=== PATIENT | female | born 1950 | race Caucasian/White ===

== ENCOUNTER 2018-05-28 11:25 | Day surgery (SDC) | payer OTHER ==
[2018-05-28 11:57] VITALS: BMI 26.2
[2018-05-28 12:52] VITALS: TEMP 98
[2018-05-28 13:10] VITALS: PULSE 62
[2018-05-28 15:04] VITALS: BP 123/64
--- NOTE | 2018-05-29 16:45 | PATH ---
Surgical Pathology Report Patient Name: VETO ANDRE [facility]. Rec. #: [id number] /Age/Gender: 1950 (Age: 67) / F Account: [id number] Location: ASU-ENDOSCOPY Taken: 05/28/2018 Received: 05/28/2018 Reported: 05/29/2018 Physicians: Cuate Scales D.O. Specimen(s) Received A: BX CECUM B: BX CECAL POLYP C: BX HEPATIC FLEXURE D: BX PROXIMAL TRANSVERSE COLON E: POLYP SIGMOID F: RECTAL SIGMOID POLYP Clinical History History of colon polyps Postoperative diagnosis: Hemorrhoids, diverticulosis, colon polyps Final Diagnosis A. CECUM, BIOPSY: COLONIC MUCOSA WITH LYMPHOID AGGREGATES IN THE LAMINA PROPRIA. B. CECAL POLYP, POLYPECTOMY: TUBULAR ADENOMA. C. HEPATIC FLEXURE POLYP, POLYPECTOMY: TUBULAR ADENOMA. D. PROXIMAL TRANSVERSE COLON POLYP, POLYPECTOMY: TUBULAR ADENOMA. E. SIGMOID POLYP, POLYPECTOMY: TUBULAR ADENOMA. F. RECTAL SIGMOID POLYP POLYPECTOMY: TUBULAR ADENOMA. Electronically Signed Ana Maria Dill M.D. Gross Description A. Received in formalin, labeled "biopsy cecum" are 3 guzman, irregular portions of soft tissue ranging from 0.3-0.4 cm. in greatest dimension. The specimens are submitted in toto in one cassette. B. Received in formalin, labeled "biopsy cecal polyp" is a guzman, irregular portion of soft tissue measuring 0.4 cm. in greatest dimension. The specimen is submitted in toto in one cassette. C. Received in formalin, labeled "biopsy hepatic flexure polyp" is a guzman, irregular portion of soft tissue measuring 0.3 cm. in greatest dimension. The specimen is submitted in toto in one cassette. D. Received in formalin, labeled "proximal transverse colon" is a guzman, irregular portion of soft tissue measuring 0.2 cm. in greatest dimension. The specimen is submitted in toto in one cassette. E. Received in formalin, labeled "biopsy sigmoid polyp" is a guzman, irregular portion of soft tissue measuring 0.5 cm. in greatest dimension. The specimen is submitted in toto in one cassette. F. Received in formalin, labeled "biopsy rectal sigmoid polyp" is a guzman, irregular portion of soft tissue measuring 0.2 cm. in greatest dimension. The specimen is submitted in toto in one cassette. 05/28/201805/28/2018
== END 2018-05-28 13:55 | disposition home or self-care (01) ==
LOC: JASU-ENDO 11:25
PROVIDERS: ATTEND Internal Medicine Gastroenterology
PROC: 0DBL8ZX Excision of Transverse Colon, Via Natural or Artificial Opening Endoscopic, Diagnostic (ICD-10-PCS; 2018-05-28)
PROC: 0DBN8ZX Excision of Sigmoid Colon, Via Natural or Artificial Opening Endoscopic, Diagnostic (ICD-10-PCS; 2018-05-28)
PROC: 0DBH8ZX Excision of Cecum, Via Natural or Artificial Opening Endoscopic, Diagnostic (ICD-10-PCS; principal; 2018-05-28 11:00)
DX: Z12.11 Encounter for screening for malignant neoplasm of colon (principal); Z86.010 Personal history of colon polyps; K57.30 Diverticulosis of large intestine without perforation or abscess without bleeding; K63.5 Polyp of colon; K64.8 Other hemorrhoids
CPT/HCPCS: 88305-TC

== ENCOUNTER 2020-02-10 18:19 | Inpatient (IN) | payer OTHER ==
[2020-02-10 18:26] VITALS: BMI 25.8
--- NOTE | 2020-02-10 18:56 | PDOC ---
History of Present Illness - General Chief Complaint: Injury Stated Complaint: FALL, syncope Time Seen by Provider: 02/10/20 18:55 - History of Present Illness Initial Comments: 02/10/20 19:16 69 F with no PMH came to the ED with fall injury. 4 hours ago, [place] beach. She was dehyrated; she fell on the ground, hitting the concrete. She admitted she has brief LOC. this is a witnessed fall. The php website developer packed her with gauze, and she was able to walk and drive home. She denies headaches, change of vision, N/V/D, chest pain, abdominal pain, dizziness, lost of balance. PMH: Hyperlipedemia PSH: none Allergy : shellfish Med: statin 10mg , metformin 500mg PCP: eric STEWARD GENERAL/CONSTITUTIONAL: No fever or chills. No weakness. HEAD, EYES, EARS, NOSE AND THROAT: No change in vision. No ear pain or dis charge. No sore throat. head injury CARDIOVASCULAR: No chest pain or shortness of breath RESPIRATORY: No cough, wheezing, or hemoptysis. GASTROINTESTINAL: No nausea, vomiting, diarrhea or constipation. GENITOURINARY: No dysuria, frequency, or change in urination. MUSCULOSKELETAL: No joint or muscle swelling or pain. No neck or back pain. SKIN: No rash NEUROLOGIC: No headache, vertigo, loss of consciousness, or change in strength/sensation. ENDOCRINE: No increased thirst. No abnormal weight change HEMATOLOGIC/LYMPHATIC: No anemia, easy bleeding, or history of blood clots. ALLERGIC/IMMUNOLOGIC: No hives or skin allergy. PE GENERAL: Awake, alert, and fully oriented, in no acute distress HEAD: normocephalic, 4cm laceration on top of the head. opened wound, bleeding is controlled. no cervical tenderness. EYES: PERRLA, EOMI, sclera anicteric, conjunctiva clear ENT: Auricles normal inspection, hearing grossly normal, nares patent, orophar ynx clear without exudates. Moist mucosa NECK: Normal ROM, supple, no lymphadenopathy, JVD, or masses LUNGS: No distress, speaks full sentences, clear to auscultation bilaterally HEART: Regular rate and rhythm, normal S1 and S2, no murmurs, rubs or gallops, peripheral pulses normal and equal bilaterally. ABDOMEN: Soft, nontender, normoactive bowel sounds. No guarding, no rebound. No masses EXTREMITIES : Normal inspection, Normal range of motion, no edema. No clubbing or cyanosis. NEUROLOGICAL: Cranial nerves II through XII grossly intact. Normal speech, normal gait, no focal sensorimotor deficits SKIN: Warm, Dry, normal turgor, no rashes or lesions noted 02/10/20 19:21 Past History - Medical History Allergies/Adverse Reactions: Allergies Allergy/AdvReac Type Severity Reaction Status Date / Time shellfish derived Allergy Verified 02/10/20 18:27 Home Medications: Ambulatory Orders Atorvastatin Ca [Lipitor] 20 mg PO HS 05/28/18 COPD: No Hypercholesterolemia: Yes - Psycho-Social/Smoking History Smoking History: Never smoked Information on smoking cessation initiated: No - Substance Abuse Hx (Audit-C & DAST Scrn) How often the patient has a drink containing alcohol: Never Score: In Men: 4 or > Positive; In Women: 3 or > Positive: 0 Screen Result (Pos requires Nsg. Audit-10AR): Negative In the last yr the pt used illegal drug/Rx for NonMed reason: No Score: Yes response is considered Positive: 0 Screen Result (Positive result requires Nsg. DAST-10): Negative *Physical Exam - Vital Signs Last Vital Signs Temp Pulse Resp BP Pulse Ox 98.4 F 78 19 162/78 99 02/10/20 18:23 02/10/20 18:23 02/10/20 18:23 02/10/20 18:23 02/10/20 18:23 Procedures - Laceration/Wound Repair Head Wound Length: to 2.5 cm Wound Explored: clean, no foreign body present Wound's Depth, Shape: superficial Irrigated w/ Saline: Yes Betadine Prep: Yes Wound Repaired With: [place] (6 stapes ) ED Treatment Course - LABORATORY CBC & Chemistry Diagram: 02/10/20 20:40 02/10/20 20:40 Medical Decision Making - Medical Decision Making 02/10/20 19:22 69 F with no PMH came to the ED after a head injury given the LOC status after the fall, head CT scan no contrast was order Plan: if neg, clean the wound, staple it up. 02/10/20 21:29 Lab was drawn for CBC, CMP, coag Tetnaus shot was given, 1 L of fluid was given. EKG is neg, no acute ischemic changes. CT cervical was neg , no fx CT head scan show no evidence of acute intracranial trauma. A subtle 1 cm right forntal subcortical white matter hypodense focus is seen possibly representing a chronic or acute infarct and less likely a focal mass lesion. there is no associated mass effect or edema. Recommended MRI . Patient is debrief and recommend to admit for MRI. 02/10/20 21:32 02/10/20 22:01 MBMD sent 5 stapes were put on the head. laceration is repaired. tylenol for pain control . Discharge - Discharge Information Problems reviewed: Yes Clinical Impression/Diagnosis: Syncope and collapse, Abnormal CT of brain Scalp laceration Qualifiers: Encounter type: initial encounter Qualified Code(s): S01.01XA - Laceration without foreign body of scalp, initial encounter Condition: Good - Admission Yes - Follow up/Referral Referrals: Eric Mehta MD [Primary Care Provider] - - Patient Discharge Instructions - Post Discharge Activity
[2020-02-10] MEDS ORDERED: DIPHTH,PERTUSS(ACELL),TET 0.5 ML DISP.SYRIN IM ONE ×2 (19:40→20:24)
[2020-02-10] MEDS ORDERED: SODIUM CHLORIDE 1,000 ML IV STA (20:10)
--- NOTE | 2020-02-10 21:29 | PDOC ---
Attending Attestation - Resident Resident Name: Ramone Rivero - ED Attending Attestation I have performed the following: I have examined & evaluated the patient, The case was reviewed & discussed with the resident, I agree w/resident's findings & plan - HPI HPI: 02/10/20 21:27 see resident hpi - Physicial Exam PE: 02/10/20 21:27 see resident exam - Medical Decision Making 02/10/20 21:27 69-year-old female status post syncopal episode striking the back of her head, per patient she feels she was dehydrated CT scan of the brain shows a possible focal lesion consistent with prior stroke, less likely mass Though likely unrelated to current complaint, and combination with syncopal episode and patient's age we will recommend observation admission and further evaluation Discharge - Discharge Information Problems reviewed: Yes Clinical Impression/Diagnosis: Syncope and collapse, Scalp laceration, Abnormal CT of brain - Follow up/Referral Referrals: Eric Mehta MD [Primary Care Provider] - - Patient Discharge Instructions - Post Discharge Activity
[2020-02-10 21:48] LABS: BASO % 0.4 % (0-2.0); EOS % 2.6 % (0-4.5); HEMATOCRIT 40.1 % (32.4-45.2); HEMOGLOBIN 13.3 GM/dL (10.7-15.3); LYMPH % 24.8 % (8-40); MCH 29.7 pg (25.7-33.7); MCHC 33.3 g/dl (32.0-36.0); MEAN CELL VOLUME 89.4 fl (80-96); MEAN PLT VOLUME 8.3 fl (7.5-11.1); MONO % 8.2 % (3.8-10.2); PLATELET COUNT 314 K/MM3 (134-434); RBC 4.49 M/mm3 (3.60-5.2); RDW 13.2 % (11.6-15.6)
[2020-02-10 21:54] LABS: PROTHROMBIN TIME (PATIENT) 11.8 SEC (9.7-13.0)
[2020-02-10] MEDS ORDERED: ACETAMINOPHEN 325 MG TABLET (FP) PO ONE (22:02)
[2020-02-10] MEDS ORDERED: ACETAMINOPHEN 325 MG TABLET (FP) ONE (22:08)
[2020-02-10 22:32] LABS: ALBUMIN 4.2 g/dl (3.4-5.0); ALK PHOS 100 U/L (45-117); ANION GAP 10 MMOL/L (8-16); BLOOD UREA NITROGEN 18.1 mg/dL (7-18); CALCIUM 9.8 mg/dL (8.5-10.1); CHLORIDE 109 mmol/L (98-107); CO2 23 mmol/L (21-32); CREATININE 0.9 mg/dL (0.55-1.3); GLUCOSE,RANDOM 127 mg/dL (74-106); POTASSIUM 3.7 mmol/L (3.5-5.1); SGOT/AST 24 U/L (15-37); SGPT/ALT 40 U/L (13-61); SODIUM 142 mmol/L (136-145); TOT PROT 7.2 g/dl (6.4-8.2)
[2020-02-10 23:05] LABS: BILIRUBIN,TOTAL 0.6 mg/dL (0.2-1)
--- NOTE | 2020-02-10 23:33 | PN ---
Teaching Attending Note Name of Resident: Reese Cabrera ATTENDING PHYSICIAN STATEMENT I saw and evaluated the patient. I reviewed the resident's note and discussed the case with the resident. I agree with the resident's findings and plan as documented. SUBJECTIVE: Patient is a 69 year old woman with a PMH of NIDDM and HLD who presents to the E after an fall and head trauma at the beach today. Says she was dehyrated; fell on the ground, hitting the concrete. She admitted she has brief LOC - was a witnessed fall. The neck band setter packed her scalp laceration with gauze, and she was able to walk and drive home. No prior episodes of falls or syncope. She denies headaches, change of vision, lost of balance, chest pain, shortness of breath, abdominal pain, palpitations, dizziness, fever, chills, nausea, vomiting, diarrhea, constipation, dysuria, frequency, urgency, melena, hematochezia or hematuria. Denies alcohol, tobacco or illicit drug use. No sick contacts or recent travels. Lives alone at home. 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 Family history - father had pancreatitis and bleeding ulcer and mother had DM. OBJECTIVE: Alert Vital Signs Period Temp Pulse Resp BP Sys/Guy Pulse Ox Last 24 Hr 98.4 F 78 19 162/78 99 HEENT: No Jaundice, eye redness or discharge, PERRLA, EOMI. Normocephalic, scalp laceration closed with michael. External ears are normal and hearing is grossly intact. No nasal discharge. Neck: Supple, nontender. No palpable adenopathy or thyromegaly. No JVD Chest: Good effort. Clear to auscultation and percussion. Heart: Regular. No S3, rub or murmur Abdomen: Not distended, soft, nontender and no HSM. No rebound or guarding. Normal bowel sounds. Ext: Peripheral pulses intact. No leg edema. Skin: Warm and dry. No petechiae, rash or ecchymosis. Neuro: Alert. Oriented x3. CN 2-12 grossly intact. Sensation grossly intact in all four extremities and DTR are symmetric. Psych: Appropriate mood and affect. Good insight. Home Medications Medication Instructions Recorded Metformin HCl [Glucophage] 500 mg PO DAILY 02/10/20 Rosuvastatin [Crestor -] 10 mg PO HS 02/10/20 Abnormal Lab Results 02/10/20 02/10/20 20:40 20:40 WBC 12.0 H Chloride 109 H BUN 18.1 H Random Glucose 127 H ASSESSMENT AND PLAN: 1. Syncope/UTI - May have been precipitated by UTI. CT cervical spine showed central canal stenosis. Head CT scan shows no evidence of acute intracranial trauma. A subtle 1 cm right forntal subcortical white matter hypodense focus is seen possibly representing a chronic or acute infarct and less likely a focal mass lesion. There is no associated mass effect or edema. Recommended MRI and has been ordered. Consult Neurology. Got DPT vaccine in the ER. Will admit to telemetry, treat UTI with IV Ceftriaxone 1 gm qd, get ECHO, fasting lipids, urine toxicology, urinalysis, carotid doppler, HbA1c, do neurochecks and implement seizure and fall precautions. Viral testing for COVID- 19 ordered and patient placed on airborne, droplet and contact isolation. EKG shows NSR at 71/minute and QTc [address]-T wave changes. Initial troponin is negative. Will continue comprehensive care for all of patients comorbid conditions. 2. DM For now, we will hold the home diabetes drugs and implement sliding sca le insulin regimen. Provide comprehensive diabetes care with patient teaching and counseling about the importance of adherence to prescribed diabetes regimen, euglycemia, eye care and foot care. 3. Undiagnosed hypertension? Will monitor BP closely and check urine protein/creatinine ratio. Will benefit from at least an ACEI/ARB therapy. Patient counseled on the injurious effects of uncontrolled hypertension. Nonpharmacologic measures to control hypertension like weight loss, salt restriction and exercise stressed. Importance of adherence to treatment regimen and attainment of normotension emphasized. 4. DVT prophylaxis - Lovenox 40 mg SQ q 24 hours. 5. Advance directives - Full code
--- NOTE | 2020-02-10 23:52 | PDOC ---
*Physical Exam - Vital Signs Last Vital Signs Temp Pulse Resp BP Pulse Ox 98.4 F 78 19 162/78 99 02/10/20 18:23 02/10/20 18:23 02/10/20 18:23 02/10/20 18:23 02/10/20 18:23 ED Treatment Course - LABORATORY CBC & Chemistry Diagram: 02/10/20 20:40 02/10/20 20:40 - ADDITIONAL ORDERS Additional order review: Laboratory Results 02/10/20 02/10/20 20:40 20:40 PT with INR 11.80 INR 1.00 Sodium 142 Potassium 3.7 Chloride 109 H Carbon Dioxide 23 Anion Gap 10 BUN 18.1 H Creatinine 0.9 Est GFR (CKD-EPI)AfAm 76.14 Est GFR (CKD-EPI)NonAf 65.70 Random Glucose 127 H Calcium 9.8 Total Bilirubin 0.6 AST 24 ALT 40 Alkaline Phosphatase 100 Creatine Kinase 122 Troponin I < 0.02 Total Protein 7.2 Albumin 4.2 02/10/20 20:40 RBC 4.49 MCV 89.4 MCHC 33.3 RDW 13.2 MPV 8.3 Neutrophils % 64.0 Lymphocytes % 24.8 Monocytes % 8.2 Eosinophils % 2.6 Basophils % 0.4 - RADIOLOGY Radiology Studies Ordered: Category Date Time Status CERVICAL SPINE CT W/O CONTR [CT] Stat CT Scan 02/10/20 19:37 Completed BRAIN MRI W/O CONTRAST [MRI] Stat MRI 02/10/20 22:48 Ordered - Medications Given in the ED: ED Medications Discontinued Medications Generic Name Dose Route Start Last Admin Trade Name Freq PRN Reason Stop Dose Admin Acetaminophen 650 mg 02/10/20 22:02 02/10/20 22:19 Tylenol - PO 02/10/20 22:03 650 mg ONCE ONE Administration Diphtheria/Tetanus/Acell Pertussis 0.5 ml 02/10/20 19:40 02/10/20 20:50 Boostrix - IM 02/10/20 19:41 0.5 ml .ONCE ONE Administration Sodium Chloride 1,000 mls @ 1,000 mls/hr 02/10/20 20:10 02/10/20 20:54 Normal Saline - IV 02/10/20 21:09 1,000 mls/hr ASDIR STA Administration Discharge - Discharge Information Problems reviewed: Yes Clinical Impression/Diagnosis: Syncope and collapse, Abnormal CT of brain Scalp laceration Qualifiers: Encounter type: initial encounter Qualified Code(s): S01.01XA - Laceration without foreign body of scalp, initial encounter Condition: Good - Admission Yes - Follow up/Referral Referrals: Eric Mehta MD [Primary Care Provider] - - Patient Discharge Instructions - Post Discharge Activity
[2020-02-11 01:11] LABS: EPI CELLS 9 /uL (0-25.1); HYALINE CASTS 145 /uL (0-3.1); URINE APPEARANCE CLOUDY; URINE BILIRUBIN NEGATIVE (NEGATIVE); URINE COLOR YELLOW; URINE GLUCOSE (UA) NEGATIVE (NEGATIVE); URINE KETONE NEGATIVE (NEGATIVE); URINE LEUK ESTERASE 3+ (NEGATIVE); URINE NITRITE POSITIVE (NEGATIVE); URINE PROTEIN NEGATIVE (NEGATIVE); URINE RBC 45 /uL (0-23.9); URINE UROBILINOGEN 0.2 mg/dL (0.2-1.0); URINE WBC 816 /uL (0-25.8)
[2020-02-11] MEDS ORDERED: CEFTRIAXONE 1 GM in DEXTROSE 5%-WATER - 50 ML IVPB ONE (01:57)
[2020-02-11] MEDS ORDERED: CEFTRIAXONE 1 GM/50 ML BAG ONE ×2 (02:05→10:01)
--- NOTE | 2020-02-11 03:50 | HP ---
CHIEF COMPLAINT: I fell and hit my head PCP: Brandie HISTORY OF PRESENT ILLNESS: Nai Tse is a 69 F with PMH of HLD and NIDDM presents s/p fall. patient reports that today she was at the beach and when she was walking to her car to go home, she felt a little hot and dizzy. when she was unfolding her beach chair to sit down, she lost her footing in the sand, suddenly fell backwards and hit her head against a concrete, raised wall. She reports LOC for few seconds and a spontaneous recovery. She reports no loss of memory. She denies any palpitations, nausea, vomiting, vision changes associate with the event. The event was witnessed by people nearby. Lifeguards packed her wound with gauze. She was able to get up on her own and she drove home. At home, she noticed active bleeding from the wound, which prompt her to visit the ED. She denies any SOB, chest pain, fever, chills, nausea, vomiting, changes in Bowel habits, dysuria, or focal neurological deficits. Family Hx significant for Mother-DM. ER: Patients wound was treated and stapled. she received acetaminophen 650, N/S 1000mls, Boostrix 0.5ml. She reports improvement of her pain and resolution of active bleeding from the wound. Head CT: A subtle 1 cm r. frontal subcortical white matter hypodense focus is seen possibly representing a chronic or acute infarct and less likely a focal mass lesion ER course was notable for: (1) Head CT: A subtle 1 cm r. frontal subcortical white matter hypodense focus (2) BS 127 (3) WBC 12, UA + Nitrite, 3+ leuk est, >10,000 bacteria Recent Travel: denies PAST MEDICAL HISTORY: As above in HPI PAST SURGICAL HISTORY: Denies Social History: Smoking: Denies Alcohol: once in a while, social events Drugs: Denies Allergies shellfish derived Allergy (Verified 02/10/20 18:27) HOME MEDICATIONS: Home Medications Medication Instructions Recorded Metformin HCl [Glucophage] 500 mg PO DAILY 02/10/20 Rosuvastatin [Crestor -] 10 mg PO HS 02/10/20 REVIEW OF SYSTEMS CONSTITUTIONAL: Absent: fever, chills, diaphoresis, generalized weakness, malaise, loss of appetite, weight change HEENT: Absent: rhinorrhea, nasal congestion, throat pain, difficulty swallowing, visual changes CARDIOVASCULAR: Present: syncope Absent: chest pain, palpitations, irregular heart rate, lightheadedness, peripheral edema RESPIRATORY: Absent: cough, shortness of breath, dyspnea with exertion, orthopnea, wheezing GASTROINTESTINAL: Absent: abdominal pain, abdominal distension, nausea, vomiting, diarrhea, constipation GENITOURINARY: Absent: dysuria, frequency, urgency, hesitancy, hematuria, flank pain MUSCULOSKELETAL: Absent: myalgia, arthralgia, joint swelling, back pain, neck pain SKIN: Absent: rash, itching, pallor NEUROLOGIC: Absent: headache, focal weakness or paresthesias, dizziness, unsteady gait, seizure, mental status changes, bladder or bowel incontinence PHYSICAL EXAMINATION Vital Signs - 24 hr 02/10/20 02/11/20 18:23 01:00 Temperature 98.4 F Pulse Rate 78 Pulse Rate [ 65 Left Radial] Respiratory 19 16 Rate Blood Pressure 162/78 Blood Pressure 164/81 [Right Arm] O2 Sat by Pulse 99 97 Oximetry (%) GENERAL: Awake, alert, and fully oriented, in no acute distress. HEAD: 4-5cm laceration. Dried blood. No active bleeding. 6 michael EYES: Pupils equal, round and reactive to light, extraocular movements intact, sclera anicteric, conjunctiva clear. EARS, NOSE, THROAT: Ears normal, nares patent, oropharynx clear without exudates. Moist mucous membranes. NECK: Normal range of motion, supple without lymphadenopathy, JVD, or masses. LUNGS: Breath sounds equal, clear to auscultation bilaterally. No wheezes, and no crackles. HEART: Regular rate and rhythm, normal S1 and S2 without murmur, rub or gallop. ABDOMEN: Soft, nontender, not distended, normoactive bowel sounds, no guarding, no rebound, no masses. MUSCULOSKELETAL: Normal range of motion at all joints. No bony deformities or tenderness. No CVA tenderness. UPPER EXTREMITIES: 2+ pulses, warm, well-perfused. No cyanosis. No clubbing. No peripheral edema. LOWER EXTREMITIES: 2+ pulses, warm, well-perfused. No calf tenderness. No peripheral edema. NEUROLOGICAL: Cranial nerves II-XII intact. Normal speech. Normal gait. PSYCHIATRIC: Cooperative. Good eye contact. Appropriate mood and affect. SKIN: Warm, dry, normal turgor, no rashes or lesions noted, normal capillary refill. Laboratory Results - last 24 hr 02/10/20 02/10/20 02/10/20 20:40 20:40 20:40 WBC 12.0 H RBC 4.49 Hgb 13.3 Hct 40.1 MCV 89.4 MCH 29.7 MCHC 33.3 RDW 13.2 Plt Count 314 MPV 8.3 Absolute Neuts (auto) 7.7 Neutrophils % 64.0 Lymphocytes % 24.8 Monocytes % 8.2 Eosinophils % 2.6 Basophils % 0.4 Nucleated RBC % 0 PT with INR 11.80 INR 1.00 Sodium 142 Potassium 3.7 Chloride 109 H Carbon Dioxide 23 Anion Gap 10 BUN 18.1 H Creatinine 0.9 Est GFR (CKD-EPI)AfAm 76.14 Est GFR (CKD-EPI)NonAf 65.70 Random Glucose 127 H Calcium 9.8 Total Bilirubin 0.6 AST 24 ALT 40 Alkaline Phosphatase 100 Creatine Kinase 122 Troponin I < 0.02 Total Protein 7.2 Albumin 4.2 Urine Color Urine Appearance Urine pH Ur Specific [place] Urine Protein Urine Glucose (UA) Urine Ketones Urine Blood Urine Nitrite Urine Bilirubin Urine Urobilinogen Ur Leukocyte Esterase Urine WBC (Auto) Urine RBC (Auto) Urine Casts (Auto) U Pathogenic Cast Auto U Epithel Cells (Auto) Urine Bacteria (Auto) 02/11/20 00:54 WBC RBC Hgb Hct MCV MCH MCHC RDW Plt Count MPV Absolute Neuts (auto) Neutrophils % Lymphocytes % Monocytes % Eosinophils % Basophils % Nucleated RBC % PT with INR INR Sodium Potassium Chloride Carbon Dioxide Anion Gap BUN Creatinine Est GFR (CKD-EPI)AfAm Est GFR (CKD-EPI)NonAf Random Glucose Calcium Total Bilirubin AST ALT Alkaline Phosphatase Creatine Kinase Troponin I Total Protein Albumin Urine Color Yellow Urine Appearance Cloudy Urine pH 5.0 Ur Specific [place] 1.015 Urine Protein Negative Urine Glucose (UA) Negative Urine Ketones Negative Urine Blood 1+ H Urine Nitrite Positive H Urine Bilirubin Negative Urine Urobilinogen 0.2 Ur Leukocyte Esterase 3+ H Urine WBC (Auto) 816 Urine RBC (Auto) 45 Urine Casts (Auto) 145 U Pathogenic Cast Auto None seen U Epithel Cells (Auto) 9 Urine Bacteria (Auto) >10,000 ASSESSMENT/PLAN: 69 F with PMH of HLD and NIDDM presents s/p fall. Head CT: A subtle 1 cm r. frontal subcortical white matter hypodense focus. Labs were significant for UA + Nitrite, 3+ leuk est, >10,000 bacteria, WBC 12.0. patient is admitted to Tele for workup/management of syncope and UTI. #SYNCOPE - possibly 2/2 UTI vs Orthostatic - UA: UA + Nitrite, 3+ Leuk est, >10,000 bacteria - Orthostatic BP supine 162/78 P78, sitting 175/85 P75, standing 167/84 P86, taken after the Fluids. - CT Head:A subtle 1 cm r. frontal subcortical white matter hypodense focus, no acute intracranial trauma, will f/u with MRI - CT C-spine: central canal stenosis, no acute fractures - Ordered Echo, to r/o cardiac structural abnormalities - f/u Carotid Doppler - Neurocheck Q4H - Neurology consulted, will f/u with recs - seizure and fall precautions are in place #UTI - UA: UA + Nitrite, 3+ Leuk est, >10,000 bacteria - Continue Ceftriaxone 1gm qd - f/u urine culture #DM - BGM + Sliding scale insulin regimen protocol in place #ELEVATED BP - possibly 2/2 stress vs undiagnosed HTN - will continue to monitor v/s - f/u with urine protein/creat ratio - If BP remains elevated at D/C, will initiate low dose of ACEI/ARB therapy at d/c. #FEN - No standing fluids - Continue to monitor electrolytes - Diabetic diet #DVT PPX - Lovenox 40 mg #DISPO: - will continue to monitor patient on Tele, pending neurology eval Visit type - Medication Review Med list reviewed for High Risk Meds patients 65 and older: Yes - Emergency Visit Emergency Visit: Yes ED Registration Date: 02/10/20 Care time: The patient presented to the Emergency Department on the above date and was hospitalized for further evaluation of their emergent condition. - New Patient This patient is new to me today: Yes Date on this admission: 02/11/20 - Critical Care Critical Care patient: No ATTENDING PHYSICIAN STATEMENT I saw and evaluated the patient. I reviewed the resident's note and discussed the case with the resident. I agree with the resident's findings and plan as documented. SUBJECTIVE: OBJECTIVE: ASSESSMENT AND PLAN:
[2020-02-11 07:29] LABS: BASO % 0.4 % (0-2.0); EOS % 4.6 % (0-4.5); HEMATOCRIT 37.9 % (32.4-45.2); HEMOGLOBIN 12.7 GM/dL (10.7-15.3); LYMPH % 29.1 % (8-40); MCHC 33.5 g/dl (32.0-36.0); MEAN CELL VOLUME 89.3 fl (80-96); MEAN PLT VOLUME 7.7 fl (7.5-11.1); MONO % 8.6 % (3.8-10.2); NEUT % 57.3 % (42.8-82.8); PLATELET COUNT 293 K/MM3 (134-434); RBC 4.24 M/mm3 (3.60-5.2); RDW 13.2 % (11.6-15.6)
[2020-02-11] MEDS ORDERED: ACETAMINOPHEN 325 MG TABLET (FP) PO PRN (07:39)
[2020-02-11] MEDS: INSULIN SLIDING SCALE (NOVOLOG) 1 VIAL SQ SCH ×4 (07:45→22:21)
[2020-02-11 07:48] LABS: ALBUMIN 3.7 g/dl (3.4-5.0); BILIRUBIN,TOTAL 0.8 mg/dL (0.2-1); BLOOD UREA NITROGEN 13.1 mg/dL (7-18); CALCIUM 9.1 mg/dL (8.5-10.1); CREATININE 0.8 mg/dL (0.55-1.3); POTASSIUM 3.6 mmol/L (3.5-5.1); TOT PROT 6.5 g/dl (6.4-8.2)
[2020-02-11] MEDS ORDERED: CEFTRIAXONE 1 GM in DEXTROSE 5%-WATER - 50 ML IVPB SCH (10:00)
[2020-02-11] MEDS ORDERED: ENOXAPARIN NA (PORCINE) 40 MG/0.4 ML DISP.SYRIN SQ SCH (10:00)
[2020-02-11] MEDS ORDERED: ENOXAPARIN NA (PORCINE) 40 MG/0.4 ML DISP.SYRIN SQ ONE (10:01)
--- NOTE | 2020-02-11 10:37 | ECHO ---
Version: 1 Name: VETO ANDRE Exam: Adult Echocardiogram Study Date: 02/11/2020, 8:26 AM Age: 69 Years MMode/2D Measurements & Calculations IVSd: 1.18 cm LVIDs: 2.34 cm LVIDd: 3.1 cm LVPWd: 1.16 cm LAV (MOD-bp): 46.0 ml LVOT diam: 2.01 cm Ao root diam: 3.6 cm LA dimension: 3.5 cm Doppler Measurements & Calculations MV E max taiwo: 72.6 cm/sec Med E/e': 11.2 MV A max taiwo: 103.2 cm/sec Med Peak E' Taiwo: 6.5 cm/sec MV E/A: 0.70 Lat E/e': 10.7 Lat Peak E' Taiwo: 6.8 cm/sec MR max P.6 mmHg Ao max P.5 mmHg Ao V2 max: 136.5 cm/sec Procedure A two-dimensional transthoracic echocardiogram with color flow and Doppler was performed. The patien t was in normal sinus rhythm during the exam. Left Ventricle The left ventricle is normal in size. The left ventricular ejection fraction is normal. Ejection Fra ction = 65%. The transmitral spectral Doppler flow pattern is suggestive of impaired LV relaxation. Right Ventricle The right ventricle is normal in size and function. Atria Normal left and right atrial size and function. Mitral Valve There is moderate mitral annular calcification. There is mild mitral valve thickening. There is no m itral valve stenosis. There is mild mitral regurgitation. Tricuspid Valve The tricuspid valve is normal. There is trace tricuspid regurgitation. There was insufficient TR det ected to calculate RV systolic pressure. Aortic Valve Fibrocalcific aortic valve without stenosis. No aortic regurgitation is present. Pulmonic Valve The pulmonic valve is not well seen, but is grossly normal. There is no pulmonic valvular regurgitat ion. Great Vessels The aortic root is normal size. Normal aortic arch, descending and ascending aorta. Pericardium/Pleura There is no pericardial effusion. Summary Statements The left ventricular ejection fraction is normal. The transmitral spectral Doppler flow pattern is suggestive of impaired LV relaxation. The right ventricle is normal in size and function. There is moderate mitral annular calcification. There is mild mitral valve thickening. There is mild mitral regurgitation. There is trace tricuspid regurgitation. Fibrocalcific aortic valve without stenosis. There is no pericardial effusion. MD Andriy Castellon 02/11/2020, 10:36 AM Ordering Physician: Tito Sprague Referring Physician: TITO SPRAGUE Performed By: Delaney Orozco
--- NOTE | 2020-02-11 10:45 | CON.NEURO ---
Consult Consult Specialty:: Brian Referred by:: ER Reason for Consultation:: Syncopy - History of Present Illness History of Present Illness: this is a very pleasant 69-year-old right-handed female patient with history of coronary artery disease, osteoarthritis, lower back pain, [id number] diabetes patient was at her usual status of health until yesterday she was apparently outside and it was very hot when she was walking towards her car patient had a sudden onset of difficulty with feeling dizzy. No report of any seizure-like activity noticed chest pain or palpitation. According to the patient herself this happened in the past but not to that extent patient was brought into [facility] CAT scan of the head showed questionable area of hypodensity with no evidence of bleed. Patient never been to a neurologist in the past. - History Source History Provided By: Patient, Medical Record Limitations to Obtaining History: No Limitations - Alcohol/Substance Use Hx Alcohol Use: Yes (SOCIAL) - Smoking History Smoking history: Never smoked Home Medications - Allergies Allergies/Adverse Reactions: Allergies Allergy/AdvReac Type Severity Reaction Status Date / Time shellfish derived Allergy Verified 02/10/20 18:27 - Home Medications Home Medications: Ambulatory Orders Metformin HCl [Glucophage] 500 mg PO DAILY 02/10/20 Rosuvastatin [Crestor -] 10 mg PO HS 02/10/20 Family Medical History Family History: Unremarkable Review of Systems - Review of Systems Neurological: reports: Dizziness, Headache, Incoordination, Numbness Physical Exam-Neuro Vital Signs: Vital Signs Temperature 98.2 F 02/11/20 07:08 Pulse Rate 69 02/11/20 07:08 Respiratory Rate 18 02/11/20 07:08 Blood Pressure 146/76 02/11/20 07:08 O2 Sat by Pulse Oximetry (%) 96 02/11/20 07:08 Constitutional: Yes: Well Nourished Neck: Yes: WNL Cardiovascular: Yes: WNL Labs: CBC, BMP 02/11/20 06:46 02/11/20 06:46 INR, PTT INR 1.00 (0.83-1.09) 02/10/20 20:40 - Neuro Exam Level Of Consciousness: Yes: Oriented to Person, Oriented to Place, Oriented to Time Eyes: Yes: PERRLA Speech: WNL Dominant Hand: Right Cranial Nerves II-XII Intact: Yes Gag: Present DTR's: 1+ Left Bicep, 1+ Right Bicep, 1+ Left Tricep, 1+ Right Tricep Response to light touch: Normal Response to pain prick: Normal Response to temperature: Abnormal Response to vibration: Abnormal Motor Strength: 3/5: Left Arm, Right Arm, Left Leg, Right Leg Gait: Deferred Imaging - Results Cat Scan: Image Reviewed Problem List - Problems (1) Stroke Code(s): I63.9 - CEREBRAL INFARCTION, UNSPECIFIED (2) Syncope and collapse Code(s): R55 - SYNCOPE AND COLLAPSE Assessment/Plan 1. Neuro checks every 1 hour. 2. Admit to telemetry. 3. Baby aspirin. 4. Homocysteine level. 5. Carotid Doppler. 6. Check orthostasis every shift. 7. Fall precautions. 8. Lipid profile. 9. MRI of the brain with no contrast. Thank you very much for allowing me to be part of this patient's neurological care. Ravi Torres M.D. [phone]
--- NOTE | 2020-02-11 12:55 | EKG ---
Test Reason : Blood Pressure : / mmHG Vent. Rate : 071 BPM Atrial Rate : 071 BPM P-R Int : 154 ms QRS Dur : 082 ms QT Int : 420 ms P-R-T Axes : 030 020 038 degrees QTc Int : 456 ms NORMAL SINUS RHYTHM NORMAL ECG WHEN COMPARED WITH ECG OF 06-JAN-2020 11:44, NO SIGNIFICANT CHANGE WAS FOUND Confirmed by MD SERRANO PENG ([id number]) on 02/11/2020 12:54:55 PM Referred By: Confirmed By:ASHOK SERRANO MD
--- NOTE | 2020-02-11 14:19 | PN ---
Teaching Attending Note Name of Resident: Madeline Carrasquillo ATTENDING PHYSICIAN STATEMENT I saw and evaluated the patient. I reviewed the resident's note and discussed the case with the resident. I agree with the resident's findings and plan as documented. SUBJECTIVE: pt seen and examined at bedside, denies complains, anxious to leave! OBJECTIVE: Last Vital Signs Temp Pulse Resp BP Pulse Ox 98.2 F 80 18 144/69 96 02/11/20 07:08 02/11/20 13:05 02/11/20 13:05 02/11/20 13:05 02/11/20 13:05 GENERAL: Awake, alert, and fully oriented, in no acute distress. HEAD: NC, occipital cut wound, stapled, no bleeding, minimally tender EYES: Pupils equal, round and reactive to light, sclera anicteric, conjunctiva clear. LUNGS: Breath sounds equal, clear to auscultation bilaterally. No wheezes, and no crackles. No accessory muscle use. HEART: Regular rate and rhythm, normal S1 and S2 ABDOMEN: Soft, nontender, not distended MUSCULOSKELETAL: Normal range of motion at all joints. No bony deformities or tenderness. No CVA tenderness. UPPER EXTREMITIES: 2+ pulses, warm, well-perfused. No cyanosis. No clubbing. No peripheral edema. LOWER EXTREMITIES: 2+ pulses, warm, well-perfused. No calf tenderness. No peripheral edema. NEUROLOGICAL: Cranial nerves II-XII intact. Normal speech. CBCD WBC 10.0 K/mm3 (4.0-10.0) 02/11/20 06:46 RBC 4.24 M/mm3 (3.60-5.2) 02/11/20 06:46 Hgb 12.7 GM/dL (10.7-15.3) 02/11/20 06:46 Hct 37.9 % (32.4-45.2) 02/11/20 06:46 MCV 89.3 fl (80-96) 02/11/20 06:46 MCHC 33.5 g/dl (32.0-36.0) 02/11/20 06:46 RDW 13.2 % (11.6-15.6) 02/11/20 06:46 Plt Count 293 K/MM3 (134-434) 02/11/20 06:46 MPV 7.7 fl (7.5-11.1) 02/11/20 06:46 CMP Sodium 141 mmol/L (136-145) 02/11/20 06:46 Potassium 3.6 mmol/L (3.5-5.1) 02/11/20 06:46 Chloride 109 mmol/L (98-107) H 02/11/20 06:46 Carbon Dioxide 26 mmol/L (21-32) 02/11/20 06:46 Anion Gap 7 MMOL/L (8-16) L 02/11/20 06:46 BUN 13.1 mg/dL (7-18) 02/11/20 06:46 Creatinine 0.8 mg/dL (0.55-1.3) 02/11/20 06:46 Calcium 9.1 mg/dL (8.5-10.1) 02/11/20 06:46 Total Bilirubin 0.8 mg/dL (0.2-1) 02/11/20 06:46 AST 23 U/L (15-37) 02/11/20 06:46 ALT 37 U/L (13-61) 02/11/20 06:46 Alkaline Phosphatase 97 U/L (45-117) 02/11/20 06:46 Total Protein 6.5 g/dl (6.4-8.2) 02/11/20 06:46 Albumin 3.7 g/dl (3.4-5.0) 02/11/20 06:46 Active Medications Acetaminophen (Tylenol -) 650 mg PO Q6H PRN PRN Reason: Fever Enoxaparin Sodium (Lovenox -) 40 mg SQ DAILY JUANA Last Admin: 02/11/20 10:12 Dose: 40 mg Documented by: Ceftriaxone Sodium 1 gm/ (Dextrose) 50 mls @ 200 mls/hr IVPB DAILY JUANA; Protocol Last Admin: 02/11/20 10:12 Dose: 200 mls/hr Documented by: Insulin Aspart (Novolog Vial Sliding Scale -) 1 vial SQ ACHS JUANA; Protocol Last Admin: 02/11/20 11:21 Dose: Not Given Documented by: Rosuvastatin Calcium (Crestor -) 10 mg PO HS JUANA ASSESSMENT AND PLAN: 69 F with PMH of HLD and NIDDM presents s/p syncope, & fall leading to head laceration # Syncope - no previous similar episode, pt was out in sun, likely dehydrated, felt dizzy prior to event - denies palpitations, cp, dyspnea - no neurological findings - mother of stroke and DM - Head CT: A subtle 1 cm r. frontal subcortical white matter hypodense focus could be chronic vs acute ischemic less likely focal mass - MRI - neurologist consult appreciated - tele monitoring - ECHO showed normal EF with LV relaxation abnormality - asymptomatic bacteruria. pt recieved rocephin in ED, she denied symptoms - counseled about hydration, avoid prolonged outdoor stay if weather is hot/humid. - michael removal in one week. - DVT prophylaxis as indicated, fall precautions, seizure precautions.
--- NOTE | 2020-02-11 14:43 | PN ---
Physical Exam: SUBJECTIVE: Patient seen and examined at bedside this morning. Patient reports feeling well and has no complaints. OBJECTIVE: Vital Signs Temperature 98.2 F 02/11/20 07:08 Pulse Rate 80 02/11/20 13:05 Respiratory Rate 18 02/11/20 13:05 Blood Pressure 144/69 02/11/20 13:05 O2 Sat by Pulse Oximetry (%) 96 02/11/20 13:05 GENERAL: The patient is awake, alert, and fully oriented, in no acute distress. HEAD: +michael on the mid-parietal area EYES: PERRLA, EOMI, sclera anicteric, conjunctiva clear. ENT: moist mucous membranes. NECK: full range of motion, supple. LUNGS: Breath sounds equal, clear to auscultation bilaterally HEART: Regular rate and rhythm, S1, S2 ABDOMEN: Soft, nontender, nondistended, normoactive bowel sounds EXTREMITIES: 2+ pulses, warm, well-perfused, no edema. NEUROLOGICAL: Cranial nerves II through XII grossly intact. Normal speech PSYCH: Normal mood, normal affect. SKIN: Warm, dry, normal turgor Laboratory Results - last 24 hr 02/10/20 02/10/20 02/10/20 20:40 20:40 20:40 WBC 12.0 H RBC 4.49 Hgb 13.3 Hct 40.1 MCV 89.4 MCH 29.7 MCHC 33.3 RDW 13.2 Plt Count 314 MPV 8.3 Absolute Neuts (auto) 7.7 Neutrophils % 64.0 Lymphocytes % 24.8 Monocytes % 8.2 Eosinophils % 2.6 Basophils % 0.4 Nucleated RBC % 0 PT with INR 11.80 INR 1.00 Sodium 142 Potassium 3.7 Chloride 109 H Carbon Dioxide 23 Anion Gap 10 BUN 18.1 H Creatinine 0.9 Est GFR (CKD-EPI)AfAm 76.14 Est GFR (CKD-EPI)NonAf 65.70 POC Glucometer Random Glucose 127 H Hemoglobin A1c % Calcium 9.8 Magnesium Total Bilirubin 0.6 AST 24 ALT 40 Alkaline Phosphatase 100 Creatine Kinase 122 Troponin I < 0.02 Total Protein 7.2 Albumin 4.2 Triglycerides Cholesterol Total LDL Cholesterol HDL Cholesterol Urine Color Urine Appearance Urine pH Ur Specific Brinklow Urine Protein Urine Glucose (UA) Urine Ketones Urine Blood Urine Nitrite Urine Bilirubin Urine Urobilinogen Ur Leukocyte Esterase Urine WBC (Auto) Urine RBC (Auto) Urine Casts (Auto) U Pathogenic Cast Auto U Epithel Cells (Auto) Urine Bacteria (Auto) 02/11/20 02/11/20 02/11/20 00:54 06:46 06:46 WBC 10.0 RBC 4.24 Hgb 12.7 Hct 37.9 MCV 89.3 MCH 30.0 MCHC 33.5 RDW 13.2 Plt Count 293 MPV 7.7 Absolute Neuts (auto) 5.7 Neutrophils % 57.3 Lymphocytes % 29.1 Monocytes % 8.6 Eosinophils % 4.6 H Basophils % 0.4 Nucleated RBC % 0 PT with INR INR Sodium 141 Potassium 3.6 Chloride 109 H Carbon Dioxide 26 Anion Gap 7 L BUN 13.1 Creatinine 0.8 Est GFR (CKD-EPI)AfAm 87.80 Est GFR (CKD-EPI)NonAf 75.75 POC Glucometer Random Glucose 134 H Hemoglobin A1c % Calcium 9.1 Magnesium 2.0 Total Bilirubin 0.8 AST 23 ALT 37 Alkaline Phosphatase 97 Creatine Kinase Troponin I Total Protein 6.5 Albumin 3.7 Triglycerides 152 H Cholesterol 151 Total LDL Cholesterol 81 HDL Cholesterol 48 Urine Color Yellow Urine Appearance Cloudy Urine pH 5.0 Ur Specific Brinklow 1.015 Urine Protein Negative Urine Glucose (UA) Negative Urine Ketones Negative Urine Blood 1+ H Urine Nitrite Positive H Urine Bilirubin Negative Urine Urobilinogen 0.2 Ur Leukocyte Esterase 3+ H Urine WBC (Auto) 816 Urine RBC (Auto) 45 Urine Casts (Auto) 145 U Pathogenic Cast Auto None seen U Epithel Cells (Auto) 9 Urine Bacteria (Auto) >10,000 02/11/20 02/11/20 02/11/20 06:46 07:42 11:17 WBC RBC Hgb Hct MCV MCH MCHC RDW Plt Count MPV Absolute Neuts (auto) Neutrophils % Lymphocytes % Monocytes % Eosinophils % Basophils % Nucleated RBC % PT with INR INR Sodium Potassium Chloride Carbon Dioxide Anion Gap BUN Creatinine Est GFR (CKD-EPI)AfAm Est GFR (CKD-EPI)NonAf POC Glucometer 133 146 Random Glucose Hemoglobin A1c % 8.4 H Calcium Magnesium Total Bilirubin AST ALT Alkaline Phosphatase Creatine Kinase Troponin I Total Protein Albumin Triglycerides Cholesterol Total LDL Cholesterol HDL Cholesterol Urine Color Urine Appearance Urine pH Ur Specific Brinklow Urine Protein Urine Glucose (UA) Urine Ketones Urine Blood Urine Nitrite Urine Bilirubin Urine Urobilinogen Ur Leukocyte Esterase Urine WBC (Auto) Urine RBC (Auto) Urine Casts (Auto) U Pathogenic Cast Auto U Epithel Cells (Auto) Urine Bacteria (Auto) Active Medications Generic Name Dose Route Start Last Admin Trade Name Orestes PRN Reason Stop Dose Admin Acetaminophen 650 mg 02/11/20 07:39 Tylenol - PO Q6H PRN Fever Enoxaparin Sodium 40 mg 02/11/20 10:00 02/11/20 10:12 Lovenox - SQ 40 mg DAILY JUANA Administration Ceftriaxone Sodium 1 gm/ 50 mls @ 200 mls/hr 02/11/20 10:00 02/11/20 10:12 Dextrose IVPB 200 mls/hr DAILY JUANA Administration Protocol Insulin Aspart 1 vial 02/11/20 07:00 02/11/20 11:21 Novolog Vial Sliding Scale - SQ Not Given ACHS JUANA Protocol Rosuvastatin Calcium 10 mg 02/11/20 22:00 Crestor - PO HS JUANA ASSESSMENT/PLAN: Patient is a 69 F with PMH of HLD and NIDDM presents s/p fall. Head CT: A subtle 1 cm r. frontal subcortical white matter hypodense focus. Labs were significant for UA + Nitrite, 3+ leuk est, >10,000 bacteria, WBC 12.0. Patient is admitted to [facility] for workup/management of syncope and UTI. #Syncope/Head trauma 2/2 fall - likely 2/2 dehydration and heat - UA: UA + Nitrite, 3+ Leuk est, >10,000 bacteria - Orthostatics negative, although patient already given fluids - CT Head:A subtle 1 cm r. frontal subcortical white matter hypodense focus, no acute intracranial trauma, will f/u with MRI - CT C-spine: central canal stenosis, no acute fractures - Echo done showed LV normal EF 65% and impaired LV relaxation - Carotid Doppler 12/2019 - mild intinmal thickening at the left common carotid bifurcation and tiny plaques on the RCC, without evidence of hemodynamically significant stenosis bilaterally - Neurocheck Q1h - ASA 81mg daily - homocysteine level - MRI of the brain w/o contrast - Neurology consulted (Dr. Torres). Recommendations appreciated. - seizure and fall precautions are in place #UTI - UA: UA + Nitrite, 3+ Leuk est, >10,000 bacteria - Continue Ceftriaxone 1gm qd - f/u urine culture #DM - BGM ACHS - Sliding scale insulin regimen protocol in place - Hold home metformin #Elevated BP - possibly 2/2 stress vs undiagnosed HTN - will continue to monitor v/s - If BP remains elevated at D/C, will initiate low dose of ACEI/ARB therapy at d/c. #FEN - No standing fluids - Continue to monitor electrolytes - Diabetic diet #DVT PPX - Lovenox 40 mg #DISPO: - tele obs Visit type - Emergency Visit Emergency Visit: Yes ED Registration Date: 02/10/20 Care time: The patient presented to the Emergency Department on the above date and was hospitalized for further evaluation of their emergent condition. - New Patient This patient is new to me today: Yes Date on this admission: 02/11/20 - Critical Care Critical Care patient: No - Medication Review Med list reviewed for High Risk Meds patients 65 and older: Yes ATTENDING PHYSICIAN STATEMENT I saw and evaluated the patient. I reviewed the resident's note and discussed the case with the resident. I agree with the resident's findings and plan as documented. SUBJECTIVE: OBJECTIVE: ASSESSMENT AND PLAN:
[2020-02-11] MEDS ORDERED: ROSUVASTATIN CA 10 MG TABLET (FP) PO SCH (22:00)
[2020-02-12 02:27] VITALS: TEMP 98
[2020-02-12] MEDS: INSULIN SLIDING SCALE (NOVOLOG) 1 VIAL SQ SCH (06:20)
--- NOTE | 2020-02-12 07:51 | PN ---
Teaching Attending Note Name of Resident: Madeline Carrasquillo ATTENDING PHYSICIAN STATEMENT I saw and evaluated the patient. I reviewed the resident's note and discussed the case with the resident. I agree with the resident's findings and plan as documented. SUBJECTIVE: seen and examined at bedside, denies complains OBJECTIVE: Last Vital Signs Temp Pulse Resp BP Pulse Ox 98 F 79 20 133/75 96 02/12/20 02:26 02/12/20 06:00 02/12/20 06:00 02/12/20 06:00 02/12/20 02:26 GENERAL: Awake, alert, and fully oriented, in no acute distress. HEAD: NC, occipital cut wound, stapled, no bleeding, minimally tender EYES: Pupils equal, round and reactive to light, sclera anicteric, conjunctiva clear. LUNGS: Breath sounds equal, clear to auscultation bilaterally. No wheezes, and no crackles. No accessory muscle use. HEART: Regular rate and rhythm, normal S1 and S2 ABDOMEN: Soft, nontender, not distended MUSCULOSKELETAL: Normal range of motion at all joints. No bony deformities or tenderness. No CVA tenderness. UPPER EXTREMITIES: 2+ pulses, warm, well-perfused. No cyanosis. No clubbing. No peripheral edema. LOWER EXTREMITIES: 2+ pulses, warm, well-perfused. No calf tenderness. No peripheral edema. NEUROLOGICAL: Cranial nerves II-XII intact. Normal speech. CBCD WBC 10.0 K/mm3 (4.0-10.0) 02/11/20 06:46 RBC 4.24 M/mm3 (3.60-5.2) 02/11/20 06:46 Hgb 12.7 GM/dL (10.7-15.3) 02/11/20 06:46 Hct 37.9 % (32.4-45.2) 02/11/20 06:46 MCV 89.3 fl (80-96) 02/11/20 06:46 MCHC 33.5 g/dl (32.0-36.0) 02/11/20 06:46 RDW 13.2 % (11.6-15.6) 02/11/20 06:46 Plt Count 293 K/MM3 (134-434) 02/11/20 06:46 MPV 7.7 fl (7.5-11.1) 02/11/20 06:46 CMP Sodium 141 mmol/L (136-145) 02/11/20 06:46 Potassium 3.6 mmol/L (3.5-5.1) 02/11/20 06:46 Chloride 109 mmol/L (98-107) H 02/11/20 06:46 Carbon Dioxide 26 mmol/L (21-32) 02/11/20 06:46 Anion Gap 7 MMOL/L (8-16) L 02/11/20 06:46 BUN 13.1 mg/dL (7-18) 02/11/20 06:46 Creatinine 0.8 mg/dL (0.55-1.3) 02/11/20 06:46 Calcium 9.1 mg/dL (8.5-10.1) 02/11/20 06:46 Total Bilirubin 0.8 mg/dL (0.2-1) 02/11/20 06:46 AST 23 U/L (15-37) 02/11/20 06:46 ALT 37 U/L (13-61) 02/11/20 06:46 Alkaline Phosphatase 97 U/L (45-117) 02/11/20 06:46 Total Protein 6.5 g/dl (6.4-8.2) 02/11/20 06:46 Albumin 3.7 g/dl (3.4-5.0) 02/11/20 06:46 ASSESSMENT AND PLAN: 69 F with PMH of HLD and NIDDM presents s/p syncope, & fall leading to head laceration # Syncope - no previous similar episode, pt was out in sun, likely dehydrated, felt dizzy prior to event - denies palpitations, cp, dyspnea - no neurological findings, orthostatics negative - sinus rhythm on circus hand last 24H - MRI remote ischemic/microvascular changes likely related to longstanding HTN - neurologist consult appreciated - ECHO showed normal EF with LV relaxation abnormality - asymptomatic bacteruria. - counseled about hydration, avoid prolonged outdoor stay if weather is hot/humid. - michael removal in one week. - DASH diet, Aspirin, monitor BP at home - discharge for outpatient follow up HTN DM HLD
[2020-02-12 08:08] LABS: BLOOD UREA NITROGEN 13.7 mg/dL (7-18); CALCIUM 8.9 mg/dL (8.5-10.1); CREATININE 0.7 mg/dL (0.55-1.3); MAGNESIUM 2.2 mg/dL (1.8-2.4); PHOSPHOROUS 3.5 mg/dL (2.5-4.9); POTASSIUM 4.1 mmol/L (3.5-5.1)
[2020-02-12 09:15] VITALS: BP 134/70; PULSE 74
--- NOTE | 2020-02-12 16:19 | DS ---
Physical Exam: SUBJECTIVE: Patient seen and examined. No acute events overnight. No events on tele. OBJECTIVE: Vital Signs Period Temp Pulse Resp BP Sys/Guy Pulse Ox Last 24 Hr 98 F-98.3 F 69-79 18-20 133-153/70-86 76-100 PHYSICAL EXAM GENERAL: The patient is awake, alert, and fully oriented, in no acute distress. HEAD: +michael on the mid-parietal area EYES: PERRLA, EOMI, sclera anicteric, conjunctiva clear. ENT: moist mucous membranes. NECK: full range of motion, supple. LUNGS: Breath sounds equal, clear to auscultation bilaterally HEART: Regular rate and rhythm, S1, S2 ABDOMEN: Soft, nontender, nondistended, normoactive bowel sounds EXTREMITIES: 2+ pulses, warm, well-perfused, no edema. NEUROLOGICAL: Cranial nerves II through XII grossly intact. Normal speech PSYCH: Normal mood, normal affect. SKIN: Warm, dry, normal turgor LABS Laboratory Results - last 24 hr 02/11/20 02/11/20 02/11/20 00:54 16:43 22:17 Sodium Potassium Chloride Carbon Dioxide Anion Gap BUN Creatinine Est GFR (CKD-EPI)AfAm Est GFR (CKD-EPI)NonAf POC Glucometer 151 137 Random Glucose Calcium Phosphorus Magnesium COVID-19 ([facility]) Not detected 02/12/20 02/12/20 06:14 06:53 Sodium 140 Potassium 4.1 Chloride 106 Carbon Dioxide 30 Anion Gap 4 L BUN 13.7 Creatinine 0.7 Est GFR (CKD-EPI)AfAm 103.18 Est GFR (CKD-EPI)NonAf 89.03 POC Glucometer 133 Random Glucose 155 H Calcium 8.9 Phosphorus 3.5 Magnesium 2.2 COVID-19 ([facility]) HOSPITAL COURSE: Date of Admission:02/10/20 Date of Discharge: 02/12/20 Patient is a 69 F with PMH of HLD and NIDDM presents s/p fall. Head CT: A subtle 1 cm r. frontal subcortical white matter hypodense focus. Labs were significant for UA + Nitrite, 3+ leuk est, >10,000 bacteria, WBC 12.0. Patient is admitted to [facility] for workup/management of syncope and UTI. #Syncope/Head trauma 2/2 fall - likely 2/2 dehydration and heat - IVF given - Orthostatics negative, although patient already given fluids - CT Head:A subtle 1 cm r. frontal subcortical white matter hypodense focus, no acute intracranial trauma - CT C-spine: central canal stenosis, no acute fractures - Echo done showed LV normal EF 65% and impaired LV relaxation - Carotid Doppler 12/2019 - mild intinmal thickening at the left common carotid bifurcation and tiny plaques on the RCC, without evidence of hemodynamically significant stenosis bilaterally - Brain MRI w/o contrast - no evidence of acute infarct. Ischemic changes in the white matter of both cerebra hemisphere sequela most only to long-standing hypertension or small vessel atherosclerosis - ASA 81mg daily - Neurology consulted (Dr. Torres). Recommendations appreciated. #UTI - UA: UA + Nitrite, 3+ Leuk est, >10,000 bacteria - Continue Ceftriaxone 1gm qd, switched to PO Bactrim on discharge Minutes to complete discharge: 35 Discharge Summary Problems reviewed: Yes Reason For Visit: SYNCOPE AND COLLAPSE Condition: Good - Instructions Diet, Activity, Other Instructions: Your visit You were admitted to the hospital because you fell and passed out. A CAT scan of your brain was done which revealed a lesion in which further imaging, an MRI is recommended to identify a more definite cause. You were also noted to have a urinary tract infection and treated with antibiotics. You had a wound on your head and had michael placed. Please come back to the emergency room in a week to have the michael removed. An ultrasound of your heart was done which showed that your heart does not fill with blood normally. We have given you a referral to a sales promotion manager (Dr. Castellon) to which you could follow up. Your HbA1c level was also tested and was elevated. This shows that your average blood sugar level in the past 2-3 months have been high. You may need to increase your dose of Metformin. Please follow up with your primary care doctor for further management. Medications Please take the following medications as prescribed: 1. Aspirin 81 mg daily 2. Bactrim DS 1 tab twice a day for 4 more days. 3. Metformin 500mg twice a day. Please continue your other home medications. Follow up Please follow up with your primary care doctor (Dr. Mehta) in 1 week. please follow up with the neurologist (Dr. Torres) in 1-2 weeks. Please follow up with the sales promotion manager (Dr. Castellon) in 1-2 weeks. Additional info Please call 911 or go to the ED if with any worsening fevers, chills, headache, dizziness, nausea, vomiting, chest pain, shortness of breath, belly pain, or any new concerns noted. Referrals: Eric Mehta MD [Primary Care Provider] - Andriy Castellon MD [Staff Physician] - Ravi Torres MD [Staff Physician] - Disposition: HOME - Home Medications Comprehensive Discharge Medication List: Ambulatory Orders Metformin HCl [Glucophage] 500 mg PO DAILY 02/10/20 Rosuvastatin [Crestor -] 10 mg PO HS 02/10/20 Aspirin [Ecotrin] 81 mg PO DAILY #30 tablet. 02/12/20 Sulfamethoxazole/Trimethoprim [Bactrim Ds -] 1 tab PO BID #8 tablet 02/12/20 This patient is new to me today: No Emergency Visit: Yes ED Registration Date: 02/10/20 Care time: The patient presented to the Emergency Department on the above date and was hospitalized for further evaluation of their emergent condition. Critical Care patient: No - Discharge Referral Referred to [facility] Med P.C.: No ATTENDING PHYSICIAN STATEMENT I saw and evaluated the patient. I reviewed the resident's note and discussed the case with the resident. I agree with the resident's findings and plan as documented. SUBJECTIVE: OBJECTIVE: ASSESSMENT AND PLAN:
== END 2020-02-12 09:23 | disposition home or self-care (01) | DRG 690 ==
LOC: JER 18:19 → JERBED 23:52 → J4W 02-11 18:12
PROVIDERS: ADMIT Internal Medicine; ATTEND Student in an Organized Health Care Education/Training Program
PROC: 0HQ0XZZ Repair Scalp Skin, External Approach (ICD-10-PCS; principal; 2020-02-10)
DX: N39.0 Urinary tract infection, site not specified (principal); R55 Syncope and collapse; E11.9 Type 2 diabetes mellitus without complications; E78.5 Hyperlipidemia, unspecified; M48.02 Spinal stenosis, cervical region; E86.0 Dehydration; M54.9 Dorsalgia, unspecified; M19.90 Unspecified osteoarthritis, unspecified site; S01.01XA Laceration without foreign body of scalp, initial encounter; I25.10 Atherosclerotic heart disease of native coronary artery without angina pectoris; W18.30XA Fall on same level, unspecified, initial encounter; Y93.89 Activity, other specified; Y92.89 Other specified places as the place of occurrence of the external cause
CPT/HCPCS: 36415; 70450-TC; 70551-TC; 71045-TC-FY; 72125-TC; 80048; 80053; 80061; 81003; 82550; 82962; 83036; 83721; 83735; 84100; 84484; 85025; 85610; 90715; 93005; 93010; 93306-TC; 99285-25; U0003

== ENCOUNTER 2021-06-28 05:29 | Day surgery (SDC) | payer OTHER ==
[2021-06-24 14:41] VITALS: BMI 23.6
[2021-06-28 09:21] VITALS: BP 111/65; PULSE 73; TEMP 97.5
== END 2021-06-28 09:35 | disposition home or self-care (01) ==
LOC: JASU-ENDO 05:29
PROVIDERS: ATTEND Internal Medicine Gastroenterology
PROC: 0DJD8ZZ Inspection of Lower Intestinal Tract, Via Natural or Artificial Opening Endoscopic (ICD-10-PCS; principal; 2021-06-28 08:00)
DX: Z86.010 Personal history of colon polyps (principal); K64.8 Other hemorrhoids